=== PATIENT | male | born 1970 | race Caucasian/White ===

== ENCOUNTER 2019-07-01 17:58 | Emergency (ER) | payer OTHER ==
[~2019-07-01] VITALS: Ht 175.3 cm; Wt 71.8 kg
--- NOTE | 2019-07-01 18:09 | NUR ---
EKG COMPLETED IN TRIAGE.
--- NOTE | 2019-07-01 18:34 | NUR ---
PT C/O PRODUCTIVE COUGH X1 MONTH AND HAS GOTTEN WORSE IN LAST FEW DAYS. PT HAS WOKEN UP GASPING FOR AIR AND DIZZY. CONNECTED TO MONITORING. CALL LIGHT IN REACH. AWAITING ORDERS AT THIS TIME.
[2019-07-01] MEDS ORDERED: ALBUTEROL/IPRATROPIUM 2.5MG/0.5MG, 3 ML NPPB ONE (19:00)
[2019-07-01] MEDS ORDERED: ALBUTEROL/IPRATROPIUM 2.5MG/0.5MG, 3 ML ONE (19:19)
--- NOTE | 2019-07-01 19:20 | NUR ---
RT AT BEDSIDE.
[2019-07-01 19:28] LABS: ALBUMIN 3.9 g/dL (3.4-5.0); ANION GAP 6 mmol/L (5-15); CALCIUM 8.8 mg/dL (8.5-10.1); CHLORIDE 111 mmol/L (98-107); CREATININE 1.02 mg/dL (0.7-1.3)
[2019-07-01 19:36] LABS: MD NO
--- NOTE | 2019-07-01 19:57 | NUR ---
PT AMBULATED TO RESTROOM WITH STEADY GAIT. PT STATES HE IS BREATHING BETTER AFTER NEB TREATMENT. NERI.
[2019-07-01 19:58] VITALS: BP 115/69
[2019-07-01 20:02] LABS: BASOPHILS # (AUTO) 0.13 x10^3/uL (0-0.1); BASOPHILS % (AUTO) 2 % (0-1); EOSINOPHILS # (AUTO) 0.35 x10^3/uL (0-0.4); EOSINOPHILS % (AUTO) 4 % (1-7); LYMPHOCYTES # (AUTO) 3.06 x10^3/uL (1-3.4); LYMPHOCYTES % (AUTO) 36 % (22-44); MEAN CORPUSCULAR HEMOGLOBIN 22.1 pg (27.5-34.5); MEAN CORPUSCULAR HGB CONC 31.1 g/dL (33.2-36.2); MEAN CORPUSCULAR VOLUME 71.1 fL (81-97); MEAN PLATELET VOLUME 8.8 fL (7.4-10.4); MONOCYTES # (AUTO) 0.54 x10^3/uL (0.2-0.8); MONOCYTES % (AUTO) 6 % (2-9); NEUTROPHILS # (AUTO) 4.33 x10^3/uL (1.8-6.8); NEUTROPHILS % (AUTO) 52 % (42-75); PLATELET COUNT 262 x10^3/uL (130-400); RED BLOOD COUNT 6.45 x10^6/uL (4.38-5.82); RED CELL DISTRIBUTION WIDTH 18.5 % (9.4-14.8)
--- NOTE | 2019-07-01 20:04 | NUR ---
ALL RESULTS ARE BACK AT THIS TIME. CHART UP FOR RECHECK.
== END 2019-07-01 20:57 | disposition home or self-care (01) ==
LOC: ED 20:50
DX: J18.9 Pneumonia, unspecified organism (principal); F17.200 Nicotine dependence, unspecified, uncomplicated
CPT/HCPCS: 36415; 71046; 80048; 82040; 85025; 93005; 94640; 99284; J7620

== ENCOUNTER 2020-09-25 09:32 | Emergency (ER) | payer MEDICAID ==
[~2020-09-25] VITALS: Ht 172.7 cm; Wt 65.5 kg
--- NOTE | 2020-09-25 10:06 | NUR ---
PT TO ROOM 40 W/ C/O FATIGUE, SOB, NAUSEA/DIARRHEA AND ONE BOUT OF EMESIS X 1 WK. STATES HE WORKS AT [employer] AND BELIEVES HE MAY HAVE CONTRACTED COVID AT THAT TIME. PT PLACED ON MONITORS. NADN. MOONEY. PIV INITIATED. SUNNY JONES AT BEDSIDE FOR EVAL.
[2020-09-25] MEDS ORDERED: SODIUM CHLORIDE FLUSH 10ML SYR IVF ONE (10:30)
[2020-09-25] MEDS ORDERED: DIPHENHYDRAMINE 50 MG/ML, 1ML IVPush ONE (10:30)
[2020-09-25] MEDS ORDERED: PROCHLORPERAZINE 5 MG/ML, 2ML IVPush ONE (10:30)
[2020-09-25] MEDS ORDERED: KETOROLAC 30 MG/1 ML IVPush ONE (10:30)
[2020-09-25] MEDS ORDERED: SODIUM CHLORIDE 0.9% 1,000ML IVBOLUS ONE (10:30)
[2020-09-25] MEDS ORDERED: DIPHENHYDRAMINE 50 MG/ML, 1ML ONE (10:32)
[2020-09-25] MEDS ORDERED: PROCHLORPERAZINE 5 MG/ML, 2ML ONE (10:32)
[2020-09-25] MEDS ORDERED: KETOROLAC 30 MG/1 ML ONE (10:32)
[2020-09-25 10:51] LABS: BASOPHILS % (AUTO) 1 % (0-1); EOSINOPHILS % (AUTO) 3 % (1-7); LYMPHOCYTES % (AUTO) 29 % (22-44); MEAN CORPUSCULAR HEMOGLOBIN 23.1 pg (27.5-34.5); MEAN CORPUSCULAR HGB CONC 32.3 g/dL (33.2-36.2); MONOCYTES % (AUTO) 8 % (2-9); NEUTROPHILS % (AUTO) 61 % (42-75); PLATELET COUNT 210 x10^3/uL (130-400); RED BLOOD COUNT 6.51 x10^6/uL (4.38-5.82); RED CELL DISTRIBUTION WIDTH 16.7 % (9.4-14.8)
[2020-09-25 10:52] LABS: MD NO
[2020-09-25 11:04] LABS: ALBUMIN 4.2 g/dL (3.4-5.0); ANION GAP 8 mmol/L (5-15); CHLORIDE 105 mmol/L (98-107)
[2020-09-25 11:08] LABS: ALANINE AMINOTRANSFERASE 41 U/L (12-78); ALKALINE PHOSPHATASE 63 U/L (45-117); BILIRUBIN,TOTAL 1.1 mg/dL (0.2-1.0); CREATININE 0.93 mg/dL (0.7-1.3); TOTAL PROTEIN 7.5 g/dL (6.4-8.2)
--- NOTE | 2020-09-25 11:11 | NUR ---
PT RESTING ON GURNEY. NADN. MOONEY.
[2020-09-25 12:17] VITALS: BP 108/69
--- NOTE | 2020-09-25 12:17 | NUR ---
PT RESTING ON GURNEY. NADN. MOONEY.
== END 2020-09-25 12:24 | disposition home or self-care (01) ==
LOC: ED 10:23
DX: B34.9 Viral infection, unspecified (principal); Z20.822 Contact with and (suspected) exposure to COVID-19; R05 Cough; R73.9 Hyperglycemia, unspecified; R06.00 Dyspnea, unspecified; R51.9 Headache, unspecified; R11.2 Nausea with vomiting, unspecified; R06.02 Shortness of breath; M79.10 Myalgia, unspecified site
CPT/HCPCS: 36415; 71045; 80053; 85025; 93005; 96361; 96374; 96375; 99285; J0780; J1200; J1885; J7030; U0003